=== PATIENT | male | born 1960 | race Hispanic/Latino ===

== ENCOUNTER 2024-09-09 11:35 | Emergency (ER) | payer OTHER ==
[~2024-09-09] VITALS: Ht 182.9 cm; Wt 83.0 kg
--- NOTE | 2024-09-09 11:49 | ERN ---
General Chief Complaint: Abdominal Pain Stated Complaint: DISCOMFORT IN L[facility] Time Seen by MD: 11:36 History of Present Illness Initial Comments 64-year-old male who presents for right lower quadrant discomfort. Patient reports that for the last week or so he has felt all and off discomfort in the right lower quadrant. He reports at times it was a bit painful, but then it will resolve. He denies any nausea, vomiting, fever, urinary symptoms, diarrhea, or dysuria. He was concerned about appendicitis. Allergies: Coded Allergies: No Known Drug Allergies (Unverified Allergy, Unknown, 09/09/24) Home Meds Active Scripts Dicyclomine HCl (Bentyl) 20 Mg Tab, 1 TAB PO TID for irritable bowel symptoms for 5 Days, #20 TAB 0 Refills Prov:PHONG BIGGS DO 09/09/24 Past Medical History Past Medical History: High Cholesterol, Hypertension Past Surgical History: Other Surgical History Other: NASAL SURGERY ROS Dictation CONSTITUTIONAL: No chills, no fever, no weakness, no diaphoresis, no malaise. HEAD/FACE: No signs of trauma. EENT: No eye pain, no blurred vision, no tearing, no double vision, no ear pain, no ear discharge, no nose pain, no nasal congestion, no throat pain, no throat swelling, no mouth pain. RESPIRATORY: No cough, no orthopnea, no SOB, no stridor, no wheezing. CARDIOVASCULAR: No chest pain, no edema, no palpitations, no syncope. GASTROINTESTINAL/ABDOMINAL: Right lower abdominal pain GENITOURINARY: No abnormal discharge, no dysuria, no frequent urination, no hematuria. No complaints of pain in the genitals. MUSCULOSKELETAL: No back pain, no gout, no joint pain, no joint swelling, no muscle pain, no muscle stiffness, no neck pain. INTEGUMENTARY: No change in color, no change in hair/nails, no dryness, no lesion, no lumps, no rash. NEUROLOGICAL/PSYCH: No anxiety, not depressed, no emotional problem, no headache, no numbness, no pre-existing deficit, no history of seizures, no tremors, no weakness. HEMATOLOGIC/LYMPHATIC: Not anemic, no history of blood clots, no apparent bl eeding, no bruising, glands not swollen. All Systems Negative, Except as Noted. Physical Exam Physical Exam Dictation VITAL SIGNS: Reviewed. GENERAL APPEARANCE: Alert, oriented x3, no acute distress EYES: PERRL, pink conjunctivas, eyelid no trauma, anterior chamber clear. EARS: Pinnas intact and no signs of trauma or erythema. Ear canals clear and no discharge. TMs no erythema. NOSE: No discharge, no bleeding. OROPHARYNX: Mouth normal, teeth no caries, tongue pink. Pharynx clear, no erythema. Tonsils no exudates, no abscesses noted. Mucous membrane moist. NECK: Supple, non-tender, no thyromegaly, no masses, no JVD, no bruits. BREAST: Deferred. CHEST: No tenderness, no crepitus, no paradoxical movement, no retractions. LUNGS: Clear, well-ventilated, symmetric, no rales, no wheezing, no rhonchi, no stridor, good breath sounds bilaterally. HEART: Regular rate, regular rhythm, no murmur, no gallops. VASCULAR: No peripheral edema. ABDOMEN: Soft, positive bowel sounds, nondistended, no guarding, nontender, no rebound, no masses no hepatomegaly, no splenomegaly, no Greenwood's sign, no her nias. RECTAL: Deferred. GENITAL: Deferred. NEUROLOGICAL: Normal speech, gross motor function intact, gross sensory function intact. MUSCULOSKELETAL: Neck nontender, full range of motion, back nontender, full range of motion. EXTREMITIES: Nontender, full range of motion. SKIN: Color pink, dry, no turgor, no rash, no lacerations, no abrasions, no contusions. LYMPHATICS: Deferred. Results Laboratory and Microbiology Lab and Micro Result Laboratory Tests Test 09/09/24 12:12 White Blood Count 11.4 K/uL (4.8-10.8) H Red Blood Count 6.08 MIL/uL (4.50-6.20) Hemoglobin 17.5 g/dL (14.0-18.0) Hematocrit 52.7 % (42-54) Mean Corpuscular Volume 86.7 fL (79-99) Mean Corpuscular Hemoglobin 28.8 pg (27.0-33.0) Mean Corpuscular Hemoglobin Concent 33.2 g/dL (32.0-36.0) Red Cell Distribution Width 13.3 % (11.0-15.5) Platelet Count 297 K/uL (130-400) Mean Platelet Volume 9.9 fL (7.5-10.5) Immature Granulocyte % (Auto) 0.5 % (0-1) Neutrophils (%) (Auto) 74.3 % (40.0-77.0) Lymphocytes (%) (Auto) 17.0 % (21.0-51.0) L Monocytes (%) (Auto) 6.7 % (3.0-13.0) Eosinophils (%) (Auto) 0.7 % (0.0-8.0) Basophils (%) (Auto) 0.8 % (0.0-5.0) Neutrophils # (Auto) 8.5 K/uL (1.8-7.7) H Lymphocytes # (Auto) 1.9 K/uL (1.0-4.8) Monocytes # (Auto) 0.8 K/uL (0.1-1.0) Eosinophils # (Auto) 0.08 K/uL (0.00-0.70) Basophils # (Auto) 0.09 K/uL (0.00-0.20) Absolute Immature Granulocyte (auto 0.06 K/uL (0-1) Nucleated Red Blood Cells 0.0 % (0.0-0.19) Sodium Level 139 mmol/L (136-145) Potassium Level 4.4 mmol/L (3.5-5.1) Chloride Level 105 mmol/L (101-111) Carbon Dioxide Level 31 mmol/L (21-32) Blood Urea Nitrogen 16 mg/dL (7-18) Creatinine 1.4 mg/dL (0.5-1.3) H Glomerular Filtration Rate Calc 57 mL/min (>90) Random Glucose 107 mg/dL (70-105) H Total Calcium 9.0 mg/dL (8.5-10.1) Total Bilirubin 0.6 mg/dL (0.2-1.0) Direct Bilirubin 0.1 mg/dL (0.0-0.3) Aspartate Amino Transf (AST/SGOT) 19 U/L (10-37) Alanine Aminotransferase (ALT/SGPT) 29 U/L (12-78) Alkaline Phosphatase 85 U/L (50-136) Total Creatine Kinase 127 U/L (21-232) Total Protein 7.7 g/dL (6.0-8.3) Albumin 4.0 g/dL (3.5-5.0) Lipase 53 U/L (16-77) MDM CC: Right lower quadrant pain on and off for 10 days Historian: Patient Comorbidities: DLD, HTN Limitations by social determinants of health: None Differential diagnosis: Appendicitis, hernia, colitis, other Vital signs: Stable, remained stable here in the ER Labs (independently ordered and interpreted by me ): No leukocytosis or anemia. Chemistry panel is normal. Liver enzymes are normal. Lipase is normal. CT scan of the abdomen and pelvis with contrast ( independently interpreted by me ): No acute abnormalities or surgical pathology. No signs of appendicitis. Unclear what is causing the patient's symptoms but does not appear to be life- threatening at this time. We will DC with pain control and recommend PCP follow up. ED Course Orders Procedure Category Date Status Time Cbc With Differential LAB 09/09/24 Complete 11:41 Ct Abdomen/Pelvis CT 09/09/24 Resulted W/Contrast 11:41 Creatine Kinase, Total LAB 09/09/24 Complete 11:41 Lipase LAB 09/09/24 Complete 11:41 Basic Metabolic Panel LAB 09/09/24 Complete 11:41 Hepatic Function Panel LAB 09/09/24 Complete 11:41 Iohexol (Omnipaque) PHA 09/09/24 Complete 13:01 Chest 1vw RAD 09/09/24 Taken 13:35 Current Medications Medications (Trade) Dose Ordered Sig/Keren Route PRN Reason Start Time Stop Time Status Last Admin Dose Admin Iohexol (Omnipaque) 75 ml STK-MED ONCE IV 09/09/24 13:01 09/09/24 13:01 DC Vital Signs Date Time Temp Pulse Resp B/P (MAP) Pulse Ox O2 Delivery O2 Flow Rate FiO2 09/09/24 13:54 97.9 87 18 121/65 98 Room Air* 0 21 09/09/24 11:42 98.4 113 18 155/97 98 Room Air DX & DISP Disposition: Discharge Departure Impression: Primary Impression: Right lower quadrant abdominal pain Condition: Stable Scripts Dicyclomine HCl (Bentyl) 20 Mg Tab 1 TAB PO TID for irritable bowel symptoms for 5 Days, #20 TAB 0 Refills Prov: PHONG BIGGS DO 09/09/24 Additional Instructions: There are no dangerous findings on your workup here to the day. You did not have appendicitis. The cause of your symptoms is unclear at this time. The CT scan of your abdomen and pelvis with contrast does not show any abnormalities. Your lab work (CBC, metabolic panel, liver enzymes, lactic acid, lipase) is normal. I recommend that you take 1000 mg of Tylenol or 800 mg of ibuprofen as needed for pain. Alternate these medicines every 4 hours. They are [id number]. I have prescribed Bentyl. Use this for abdominal cramping as needed. The chest x-ray is normal. Regarding the skin tags under your arms--please follow up with your primary doctor. If you continue with symptoms after 48 hours, I recommend he follow up with your primary doctor for further treatment and evaluation. Referrals: SELF,REFERRAL (PCP) PHONG BIGGS DO Sep 09, 2024 11:49
[2024-09-09 12:23] LABS: BASOPHILS # (AUTO) 0.09 K/uL (0.00-0.20); BASOPHILS % (AUTO) 0.8 % (0.0-5.0); EOSINOPHILS # (AUTO) 0.08 K/uL (0.00-0.70); EOSINOPHILS % (AUTO) 0.7 % (0.0-8.0); HEMATOCRIT 52.7 % (42-54); IMMATURE GRANULOCYTE ABSOLUTE 0.06 K/uL (0-1); LYMPHOCYTES # (AUTO) 1.9 K/uL (1.0-4.8); MEAN CORPUSCULAR HEMOGLOBIN 28.8 pg (27.0-33.0); MEAN CORPUSCULAR HGB CONC 33.2 g/dL (32.0-36.0); MEAN CORPUSCULAR VOLUME 86.7 fL (79-99); MONOCYTES # (AUTO) 0.8 K/uL (0.1-1.0); MONOCYTES % (AUTO) 6.7 % (3.0-13.0); NEUTROPHILS # (AUTO) 8.5 K/uL (1.8-7.7); NEUTROPHILS % (AUTO) 74.3 % (40.0-77.0); PLATELET COUNT (AUTO) 297 K/uL (130-400); RED BLOOD CELL COUNT(AUTO) 6.08 MIL/uL (4.50-6.20); RED CELL DISTRIBUTION WIDTH 13.3 % (11.0-15.5); WHITE BLOOD COUNT (AUTO) 11.4 K/uL (4.8-10.8)
[2024-09-09 12:32] LABS: CREATININE 1.4 mg/dL (0.5-1.3); POTASSIUM 4.4 mmol/L (3.5-5.1)
[2024-09-09 12:37] LABS: BILIRUBIN,DIRECT 0.1 mg/dL (0.0-0.3); BILIRUBIN,TOTAL 0.6 mg/dL (0.2-1.0); TOTAL PROTEIN, SERUM 7.7 g/dL (6.0-8.3)
[2024-09-09] MEDS ORDERED: IOHEXOL-350 75 ML VIAL IV ONE (13:01)
--- NOTE | 2024-09-09 13:25 | HMCIMG ---
CT ABDOMEN/PELVIS W/CONTRAST HISTORY: Abdominal pain COMPARISON: None TECHNIQUE: Multiple sequential axial images of the abdomen and pelvis were obtained from the dome of the diaphragm through symphysis pubis. Patient was given Omnipaque through intravenous route. Oral contrast was not given. FINDINGS: No pleural effusion is seen bilaterally. There is no evidence of parenchymal disease or pulmonary nodule of the visualized lower lungs. Degenerative changes of the thoracolumbar spine are present. The heart is not enlarged. Liver is borderline enlarged measuring 16 cm. There is a small periumbilical hernia with fat content. The liver, spleen, adrenal glands and pancreas are unremarkable. There is no evidence of hydronephrosis bilaterally. There is minimal diverticulosis. No evidence of renal stone is seen. Fecal material is seen in the colon. There are normal size retroperitoneal and mesenteric lymph nodes. No ascites is seen. No CT evidence of acute appendicitis is seen. Clinical correlation is recommended. Pelvic sidewalls are symmetric bilaterally. Bladder is well distended without wall thickening. IMPRESSION: 1. No acute findings. CT was performed with one or more following dose reduction techniques: automated exposure control, adjustment of the mA and kv according to patient's size, or use of a iterative reconstruction technique.
[2024-09-09] MEDS ORDERED: DICY20TA2 PO (13:51)
[2024-09-09 13:54] VITALS: BP 121/65; PULSE 87; RESP 18; TEMP 97.8; O2SAT 98
--- NOTE | 2024-09-09 14:31 | HMCIMG ---
CHEST 1VW HISTORY: Pain COMPARISON: None FINDINGS: A frontal projection of the chest was obtained. No acute pulmonary infiltrates is seen. The heart is normal in size. Degenerative changes are seen. Prominent interstitial markings are seen. No evidence of aortic calcification is seen. IMPRESSION: 1. No acute pulmonary infiltrate is seen.
== END 2024-09-09 14:19 | disposition home or self-care (01) ==
LOC: EDH 11:35
DX: R10.31 Right lower quadrant pain (principal); E78.00 Pure hypercholesterolemia, unspecified; I10 Essential (primary) hypertension
CPT/HCPCS: 99285; 74177; 71045; 82550; 80076; 80048; 83690; 85025; 36415; Q9967